=== PATIENT | male | born 1960 | race Caucasian/White ===

== ENCOUNTER 2017-07-16 02:18 | Inpatient (IN) | payer BC ==
[2017-07-16] VITALS (17 sets, daily range): BP systolic 114–177; BP diastolic 62–104
[~2017-07-16] VITALS: Ht 175.3 cm; Wt 81.1 kg
[~2017-07-16 02:18] MED LIST: ADULT LOW DOSE81 M1 PO; ASPIRIN325 MG PO; CLARITIN,ALAVAR10 MG PO; FISH OIL PO; FISH OIL SOFTG1 EAC2 PO; FLEXERIL10 MG PO; NASAL SPRAY30 M4 BOTH NARES; PERCOCET 5/31 TABLET PO; VITAMIN D400 UNI4 PO
[2017-07-16 02:45] LABS: HEMATOCRIT 40.4 % (38.0-50.0); MCH 30.7 PG (29.0-34.0); MCHC 34.2 G/DL (30.0-36.0); MCV 89.8 FL (86-99); MEAN PLAT.VOLUME 9.5 uM^3 (9.0-12.4); PLATELET COUNT 188 K/uL (156-360); RBC DIS.WIDTH-SD 39.8 % (39-53); WHITE BLOOD COUNT 4.3 K/uL (4.1-10.2)
[2017-07-16 02:56] LABS: CHLORIDE 108 mEq/L (99-109); POTASSIUM 3.5 mEq/L (3.7-5.4); SODIUM 143 mEq/L (136-147)
[2017-07-16 02:57] LABS: MAGNESIUM 1.8 mg/dL (1.3-2.7)
[2017-07-16 02:59] LABS: GLUCOSE 128 mg/dL (70-99)
[2017-07-16 03:00] LABS: ANION GAP 16 MEQ/L (2-14)
[2017-07-16 03:01] LABS: TOTAL BILIRUBIN 0.3 mg/dL (0.0-1.0)
[2017-07-16 03:02] LABS: ALKALINE PHOSPHATASE 62 IU/L (3-129)
[2017-07-16 03:03] LABS: GFR ESTIMATE (CALCULATED) > 59 mL/min/
[2017-07-16 03:04] LABS: TROP-I INTERPRETATION NEGATIVE; TROPONIN-I < 0.01 ng/mL (0.0-0.30); UREA NITROGEN (BUN) 10 mg/dL (9-23)
[2017-07-16 03:06] LABS: CREATINE KINASE 124 IU/L (1-294); TOTAL CK 124 IU/L (1-294)
[2017-07-16 03:11] LABS: CK-MB 1.6 ng/mL (0.0-4.9)
[2017-07-16 03:25] LABS: PROTHROMBIN TIME 10.4 SEC (10.2-12.9)
[2017-07-16 03:27] LABS: PTT 26.8 SEC (25-37)
[2017-07-16 06:03] LABS: METH RESISTANT S AUREUS PCR POSITIVE (NEGATIVE)
[2017-07-16 06:04] LABS: PROBE CHECK PASS; SPECIMEN PROCESSING CONTROL PASS
[2017-07-16 13:20] LABS: HDL CHOLESTEROL 74 MG/DL (Desirable>=40); LDL CHOLESTEROL 116 mg/dL (Desirable<100); NON-HDL CHOLESTEROL 141 mg/dL (Desirable<160); TOTAL CHOLESTEROL 215 mg/dL (Desirable<200); TRIGLYCERIDES 126 MG/DL (Normal: <150)
[2017-07-16 13:32] LABS: TROP-I INTERPRETATION POSITIVE
[2017-07-16 13:41] LABS: CREATINE KINASE 841 IU/L (1-294); TOTAL CK 841 IU/L (1-294)
[2017-07-16 13:46] LABS: CK-MB 104.8 ng/mL (0.0-4.9)
[2017-07-16] MEDS ORDERED: LISINOPRIL10 MG PO (14:43)
[2017-07-16] MEDS ORDERED: CLARITIN10 MG PO (14:44)
[2017-07-16] MEDS ORDERED: LO-DOSE ASPIRIN81 M2 PO (14:44)
[2017-07-16 18:32] LABS: CREATINE KINASE 601 IU/L (1-294); TOTAL CK 601 IU/L (1-294)
[2017-07-16 18:39] LABS: TROP-I INTERPRETATION POSITIVE; TROPONIN-I 39.46 ng/mL (0.0-0.30)
[2017-07-16 19:37] LABS: CK-MB 67.6 ng/mL (0.0-4.9)
[2017-07-17] VITALS (13 sets, daily range): BP systolic 101–130; BP diastolic 59–89
[2017-07-17 00:54] LABS: TOTAL CK 596 IU/L (1-294)
[2017-07-17 00:55] LABS: CREATINE KINASE 596 IU/L (1-294)
[2017-07-17 00:57] LABS: TROP-I INTERPRETATION POSITIVE
[2017-07-17 00:59] LABS: TROPONIN-I 25.81 ng/mL (0.0-0.30)
[2017-07-17 01:00] LABS: CK-MB 33.3 ng/mL (0.0-4.9)
[2017-07-17 05:54] LABS: EOSINOPHIL COUNT 0.1 K/uL (0-0.3); HEMATOCRIT 44.5 % (38.0-50.0); IMMATURE GRANULOCYTE (%) 0.4 % (0.0-0.7); INSTRUMENT ABS NEUTROPHIL CT 5.4 K/uL; LYMPHOCYTE COUNT 0.9 K/uL (1.0-2.8); MCHC 33.5 G/DL (30.0-36.0); MCV 92.5 FL (86-99); MEAN PLAT.VOLUME 10.1 uM^3 (9.0-12.4); MONOCYTE (%) 12.4 % (3-12); MONOCYTE COUNT 0.9 K/uL (0-0.8); NEUTROPHIL (%) 73.9 % (45-76); NEUTROPHIL COUNT 5.4 K/uL (1.8-6.4); PLATELET COUNT 178 K/uL (156-360); RBC DIS.WIDTH-CV 12.4 % (11.8-14.6); RBC DIS.WIDTH-SD 42.5 % (39-53); RED BLOOD COUNT 4.81 M/uL (4.00-5.50); WHITE BLOOD COUNT 7.3 K/uL (4.1-10.2)
[2017-07-17 06:15] LABS: ANION GAP 8 MEQ/L (2-14); CHLORIDE 103 MEQ/L (99-109); GFR ESTIMATE (CALCULATED) > 59 mL/min/; GLUCOSE 111 mg/dL (70-99); POTASSIUM 4.8 MEQ/L (3.7-5.4); SAMPLE HEMOLYSIS CHECK 0; SAMPLE ICTERIC CHECK 0; SAMPLE LIPEMIA CHECK 0; SODIUM 139 MEQ/L (136-147); UREA NITROGEN (BUN) 7 mg/dL (9-23)
[2017-07-17 06:56] LABS: Estimated Average Glucose 108 mg/dL (70-123); HEMOGLOBIN A1c (GLYCOHEMOGLOB) 5.4 % HGB (Below 5.7)
[2017-07-17 09:53] LABS: INFLUENZA A VIRAL ANTIGEN NEGATIVE; INFLUENZA B VIRAL ANTIGEN NEGATIVE
[2017-07-17 12:49] LABS: ADD MIUA? NO; BILIRUBIN NEGATIVE; BLOOD NEGATIVE; COLOR YELLOW ((YELLOW)); GLUCOSE (STRIP) NEGATIVE; KETONES NEGATIVE; LEUKOCYTES NEGATIVE; NITRITE NEGATIVE; PROTEIN (STRIP) NEGATIVE; SPECIFIC GRAVITY 1.015 (1.000-1.030)
[2017-07-17 13:00] LABS: UCUL ADDED? NO
[2017-07-18] VITALS: BP 117/66
[2017-07-18 02:00] VITALS: BP 103/55
[2017-07-18 04:00] VITALS: BP 102/67
[2017-07-18 06:10] LABS: ANION GAP 7 MEQ/L (2-14); CHLORIDE 106 MEQ/L (99-109); POTASSIUM 4.6 MEQ/L (3.7-5.4); SAMPLE HEMOLYSIS CHECK 0; SAMPLE ICTERIC CHECK 0; SAMPLE LIPEMIA CHECK 0; SODIUM 139 MEQ/L (136-147); TOTAL BILIRUBIN 0.6 MG/DL (0.0-1.0)
[2017-07-18 06:15] LABS: ALKALINE PHOSPHATASE 62 IU/L (3-129); GFR ESTIMATE (CALCULATED) > 59 mL/min/; GLUCOSE 100 mg/dL (70-99); UREA NITROGEN (BUN) 10 mg/dL (9-23)
[2017-07-18 08:00] VITALS: BP 112/70
[2017-07-18 09:40] VITALS: BP 121/65
[2017-07-18 10:00] VITALS: BP 118/62
[2017-07-18] MEDS ORDERED: COZAAR25 MG PO (10:15)
[2017-07-18] MEDS ORDERED: TOPROL XL25 MG PO (10:15)
[2017-07-18] MEDS ORDERED: NITROSTAT0.4 MG SL (10:15)
[2017-07-18] MEDS ORDERED: NICODERM CQ1 EAC1 TD (10:15)
[2017-07-18] MEDS ORDERED: BRILINTA90 MG PO (10:15)
[2017-07-18] MEDS ORDERED: ATORVASTATIN CA80 MG PO (10:15)
== END 2017-07-18 11:30 | disposition home or self-care (01) | DRG 247 ==
LOC: EME → EDBD 02:18 → EME 02:18 → SDC 02:51 → CATH 02:51 → ENRESERV 03:01 → 4WEST 03:30 → 2SOUTH 03:30 → 4WEST 03:30 → ENRESERV 03:38 → 4WEST 04:40
PROVIDERS: Emergency Medicine; Internal Medicine Cardiovascular Disease; Internal Medicine Critical Care Medicine
PROC: B2111ZZ Fluoroscopy of Multiple Coronary Arteries using Low Osmolar Contrast (ICD-10-PCS; principal; 2017-07-16)
PROC: 02703ZZ Dilation of Coronary Artery, One Artery, Percutaneous Approach (ICD-10-PCS; principal; 2017-07-16)
PROC: 4A023N7 Measurement of Cardiac Sampling and Pressure, Left Heart, Percutaneous Approach (ICD-10-PCS; principal; 2017-07-16)
PROC: B2151ZZ Fluoroscopy of Left Heart using Low Osmolar Contrast (ICD-10-PCS; principal; 2017-07-16)
PROC: 027034Z Dilation of Coronary Artery, One Artery with Drug-eluting Intraluminal Device, Percutaneous Approach (ICD-10-PCS; principal; 2017-07-16)
DX: I21.09 ST elevation (STEMI) myocardial infarction involving other coronary artery of anterior wall (principal); T82.855A Stenosis of coronary artery stent, initial encounter; I44.7 Left bundle-branch block, unspecified; E78.5 Hyperlipidemia, unspecified; I25.10 Atherosclerotic heart disease of native coronary artery without angina pectoris; E78.00 Pure hypercholesterolemia, unspecified; F17.290 Nicotine dependence, other tobacco product, uncomplicated; I10 Essential (primary) hypertension; I25.2 Old myocardial infarction; Z79.82 Long term (current) use of aspirin
CPT/HCPCS: 71010; 80048; 80053; 80061; 81003; 82550; 82550 91; 82553; 83036; 83735; 84484; 85025; 85027; 85347; 85610; 85730; 87040; 87502; 87641; 90686; 93005; 93306; 94799; 99281; 99285; C1725; C1769; C1874; C1887; J0153; J0461; J1644; J2250; J2405; J3010